=== PATIENT | male | born 1950 | race Caucasian/White ===

== ENCOUNTER 2016-06-01 06:34 | Inpatient (IN) | payer OTHER ==
--- NOTE | 2016-06-01 21:21 | NUR ---
VIRTUAL CARE NOTE: ASSESSMENT DEFERRED. PT SLEEPING. WILL CONTINUE WITH CHART REVIEW.
[2016-06-02 07:39] LABS: BASO % 0.1 % (0-2); HCT-HEMATOCRIT 37.2 % (36.0-53.5); HGB-HEMOGLOBIN 12.7 gm/dl (13.5-17.0); IMMATURE GRANULOCYTES ABSOLUTE 0.02 tho/cmm (0-0.03); IMMATURE GRANULOCYTES PERCENT 0.2 % (0-0.3); LYMPH % 8.5 % (20-45); MCH (MEAN CORPUSCULAR HGB) 30.7 pg (28.0-32.0); MCHC MEAN CORPUSCULAR HGB CONC 34.1 % (32.0-36.0); MCV (MEAN CELL VOLUME) 89.9 fl (82.0-96.0); MEAN PLATELET VOLUME 10.2 cmc (9.4-12.4); MONO % 7.3 % (0-12); MONOCYTE ABSOLUTE COUNT 0.9 tho/cmm (0.0-1.2); NEUTROPHIL ABSOLUTE COUNT 10.2 tho/cmm (1.6-8.0); NEUTROPHIL-AUTOMATED 10.2 tho/cmm (1.6-8.0); NEUTROPHILS % 83.9 % (40-80); PLATELET COUNT 135 tho/cmm (150-450); RED BLOOD COUNT 4.14 mil/cmm (4.40-5.70); RED CELL DISTRIBUTION WIDTH 13.8 % (12.4-16.4); WHITE BLOOD COUNT 12.1 tho/cmm (4.0-10.0)
[2016-06-02 07:48] LABS: ANION GAP 11 mmol/L (0-20); BLOOD UREA NITROGEN 17 mg/dl (6-24); CALCIUM 7.7 mg/dl (8.5-10.5); CARBON DIOXIDE-VENOUS 26 mmol/L (22-32); CHLORIDE 107 mmol/l (96-110); GLUCOSE 134 mg/dL (70-110); MAGNESIUM 2.2 mg/dl (1.8-2.6); POTASSIUM 4.1 mmol/L (3.7-5.1); SODIUM 140 mmol/L (135-145); eGFR VALUE FOR BLACK 82 mL/Min
--- NOTE | 2016-06-02 10:21 | NUR ---
VIRTUAL CARE NOTE: PT ASLEEP AT THIS TIME, NO FAMILY AT BEDSIDE. VN ROUND DEFERRED
--- NOTE | 2016-06-02 16:00 | NUR ---
VIRTUAL CARE NOTE: VN ROUND ATTEMPTED AGAIN, PT SLEEPING AT THIS TIME. VN ROUND DEFERRED.
[2016-06-03] MEDS ORDERED: NORCO 5-325 TA1 EACH PO (09:12)
[2016-06-03] MEDS ORDERED: SENOKOT-S TABL1 EACH PO (09:13)
[2016-06-03] MEDS ORDERED: IBUPROFEN600 M1 PO (09:14)
== END 2016-06-03 11:00 | DRG 331 ==
LOC: SHSB 06:34 → ORW 08:19 → PACU 11:35 → 5WD 12:40
PROVIDERS: ADMIT Colon & Rectal Surgery
PROC: 0DTC4ZZ Resection of Ileocecal Valve, Percutaneous Endoscopic Approach (ICD-10-PCS; principal; 2016-06-01)
PROC: 0DNS4ZZ (ICD-10-PCS; 2016-06-01)
PROC: 0DNE4ZZ Release Large Intestine, Percutaneous Endoscopic Approach (ICD-10-PCS; 2016-06-01)
PROC: 8E0W4CZ Robotic Assisted Procedure of Trunk Region, Percutaneous Endoscopic Approach (ICD-10-PCS; 2016-06-01)
DX: D12.0 Benign neoplasm of cecum (principal); D69.6 Thrombocytopenia, unspecified; E66.3 Overweight; K66.0 Peritoneal adhesions (postprocedural) (postinfection)
CPT/HCPCS: J0131; J0690; J1170; J1335; J1644; J1650; J1885; J2250; J3480; J7030